=== PATIENT | female | born 1950 | race Two or more races ===

== ENCOUNTER 2023-01-31 15:02 | Outpatient (REF) | payer OTHER, SELFPAY ==
--- NOTE | ~2023-01-31 | XR_ITS ---
EXAMINATION: XR CHEST CLINICAL INFORMATION: 72-year-old with cough COMPARISON: None available. TECHNIQUE: 2 views of the chest were obtained. FINDINGS: No significant abnormality is noted involving the heart, lungs, mediastinum, bony thorax or soft tissues. XR/XR chest 2V IMPRESSION: Unremarkable examination.
== END 2023-01-31 15:03 | disposition home or self-care (01) ==
LOC: HO.HHCX 15:02
PROVIDERS: Visit Provider Internal Medicine
DX: R05.1 Acute cough (principal)
CPT/HCPCS: 71046

== ENCOUNTER 2025-03-26 09:40 | Outpatient (REF) | payer OTHER, SELFPAY ==
--- OUTSIDE RECORDS SUMMARY | 2025-03-26 09:43 | XMS_ITS | Clinical Summary ---
Author Organization [facility] Address [address] [place] [address] Care Team Providers Care Equipment Analyst Name Role Phone Krishna Manuel MD Primary Care Provider [phone] Source Comments PLEASE NOTE, if this patient is a minor, it may be UNLAWFUL to discuss sensitive information that is contained in these records (such as FAMILY PLANNING, MENTAL HEALTH or SUBSTANCE ABUSE) with the minor patient's parent or other person without the patient's specific authorization.[facility] Allergies No known active allergies Medications lidocaine (LIDODERM) 5 % patchIndications: Primary osteoarthritis of both hips Place 1 Patch onto the skin once daily (every 24 hours) 90 Patch 1 024 Active acetaminophen (TYLENOL) 500 mg tabletIndications :COVID-19,Arthrit is of knee, right Take 1 Tablet by mouth every 6 (six) hours as needed for pain 90 Tablet 1 024 Active diphenhydrAMINE (BENADRYL) 25 mg capsuleIndication s:Viral upper respiratory tract infection Take 1 Capsule by mouth nightly at bedtime as needed for rhinitis or sleep 90 Capsule 024 Active oxymetazoline (AFRIN SINUS, OXYMETAZOLINE,) 0.05 % nasal sprayIndications: Viral upper respiratory tract infection Place 2 Sprays into the nostril(s) 2 (two) times daily 15 mL 024 Active diclofenac sodium (VOLTAREN) 1 % gelIndications:Ar thritis of knee, right Apply topically 2 (two) times daily as needed for pain 350 g 3 025 Active ibuprofen 600 mg tabletIndications :Viral upper respiratory tract infection Take 1 Tablet by mouth 3 (three) times daily as needed for pain or headaches 90 Tablet 025 Active MISCELLANEOUS MEDICAL SUPPLY MISCIndications:e adam due to chronic venous insufficiency Knee high compression stockings 15-20mm Hg to be used daily x 99 years dispense 2 pairs Indications: visible water retention from chronic venous insufficiency 2 Each 025 Active arm brace (WRIST BRACE)Indications :Morning joint stiffness,Fibromy algia Please provide arm compression sleeve for use 99 years, hx of fibromylagia 1 Each 025 Active atorvastatin (LIPITOR) 80 mg tabletIndications :Mixed hyperlipidemia Take 1 Tablet by mouth nightly at bedtime 90 Tablet 1 025 Active magnesium oxide 400 mg magnesium tabIndications:No cturnal leg cramps Take 1 Tablet by mouth nightly at bedtime. 90 Tablet 1 025 Active magnesium oxide (MAG-OX) 400 mg (241.3 mg magnesium) tabletIndications :Nocturnal leg cramps Take 1 Tablet by mouth nightly at bedtime 90 Tablet 025 2024 Discontinued Active Problems Problem Noted Date Diagnosed Date Fibromyalgia 12/11/2024 Morning joint stiffness 04/23/2024 Overview (12/11/2024): 04/2024: diffuse joint stiffness especially in the mornings. Pt recommended rheum eval after being seen by orthopedics 12/2023. Rheum labs including ITZEL, ESR/CRP, Rf and CCP were wnl. 10/2024: Rheum - referred back to PCP for fibromyalgia syndrome Vit B12 and iron levels wnl Primary osteoarthritis of both hips 08/22/2023 Overview (08/22/2023): 07/01/23: [facility] XR hip FINDINGS: AP radiograph of the pelvis, along with coned-down AP and external rotation-abduction views of the right hip, are obtained. The study demonstrates no fracture or dislocation. There are small marginal osteophytes arising from the superolateral aspects of the acetabula bilaterally consistent with mild osteoarthritis. A 1.2 cm well-circumscribed calcification projecting over the left femoral head may represent a buttock calcification. IMPRESSION: No acute findings. Mild osteoarthritis of the hips bilaterally. Mixed hyperlipidemia 05/27/2023 Arthritis of knee, right 05/27/2023 Encounters Date Type Department Care Team Description 01/13/2025 Interim Notes [address] [address] [place] 12/24/2024 Interim Notes Caring [facility] Main [address] [phone] [place] from Last 3 Months Immunizations Immunization Administration Dates Next Due Flu, High Dose, 65y+, Fluzone High Dose 05/23/20 23 Influenza (FLUZONE), high-dose, trivalent, PF PNEUMOCOCCAL CONJUGATE PCV 20 (Prevnar 20) 02/18 TDAP 06/12/2024 ZOSTER VACCINE, RECOMBINANT (SHINGRIX) 3,02/18/2023 Social History Tobacco Use Types Packs/Day Years Used Date Smoking Tobacco: Never Smokeless Tobacco: Never Tobacco Cessation:Counseling Given: Not Answered Alcohol Use Standard Drinks/Week Comments Never 0 (1 standard drink = 0.6 oz pur e alcohol) Social Connections Answer Date Recorded Connectedness 1 08/22/2023 Financial Resource Strain Answer Date R ecorded Financial Resource Strain 1 2023 Stress Answer Date Recorded Stress 1 08/22/2023 Physical Activity Answer Date Recorded Physical Activity 0 02/18/2023 Food Insecurity Answer Date Recorded Food 1 08/22/2023 Transportation Needs Answer Date Record ed Transportation 1 08/22/2023 Housing Stability Answer Date Recorded Housing 1 08/22/2023 Safety and Environment Answer Date Bart rded Safety 1 08/22/2023 Utilities Answer Date Recorded Utilities 1 08/22/2023 Employment Answer Date Recorded Stress 0 02/18/2023 Comments No Sex and Gender Information Value Date Recorded Sex Assigned at Female 02/18/2023 11:28 AM PDT Legal Sex Female 1:35 PM PST Gender Identity Female 02/18/2023 11:28 AM PDT Sexual Orientation Straight 02/18/2023 11 :28 AM PDT Last Filed Vital Signs Vital Sign Reading Time Taken Comments Blood Pressure 132/78 12/11/2024 1:30 PM EDT Pulse 59 12/11/2024 1:30 PM EDT Temperature 36.7 C (98 F) 12/11/2024 1:30 PM EDT Respiratory Rate 18 12/11/2024 1:30 PM EDT Oxygen Saturation 99% 07/24/2024 8:59 AM EST Inhaled Oxygen Concentration - - Weight 73.9 kg (163 lb) 12/11/2024 1:30 PM EDT Height 158 cm (5' 2.21 ) 12/11/2024 1:30 PM EDT Body Mass Index 29.62 12/11/2024 1:30 PM EDT Plan of Treatment Health Maintenance Due Date Last Done Comments CT Colonography 1997 Colonoscopy 1997 Flexible Sigmoidoscopy 1997 FIT/gFOBT 03/21/2024 03/21/2023 [id number] ( season) 2024 Imm-Influenza (#1) 2025 06/12/2024, 05/23/2023 Annual Wellness (Adult): Ind icated (All Coverage) 07/24/2025 07/24/2024, 02/18/2023 Falls Prevention 07/24/2025 07/24/2024, 02/18/2023 Lipid Screening 12/09/2025 12/09/2024, 07/06, 02/18/2023 Hypertension Screening (#1) 12/11/2025 Tobacco Screening 12/11/2025 12/11/2024 Colorectal Cancer Screening 03/21/2026 Fecal DNA 03/21/2026 03/21/2023 Breast Cancer Screening (Mammogram) 04/22/202604/22 Imm-DTaP/Tdap/Td (2 - Td or Tdap) 06/12/2034 024 Hepatitis C Screening Completed 02/18/2023 Imm-Pneumococcal 50+ Completed 02/18/2023 Imm-Zoster, Recombinant Completed 04/22/2023, 02/18 Bone Density Screening Completed 08/21/2024 Alcohol and Drug Screen Completed 12/12/19, 08/22/2023, 02/18/2023 Depression Annual Screen Completed 12/11/2024 Procedures Procedure Name Priority Date/Time Associated Diagnosis Comments REFERRAL SCANNED DOCUMENT 03/15/2025 3:00 AM EDT REFERRAL TO ORTHOPEDICS Routine 02/15/2025 3:00 AM EDT Primary osteoarthritis of both hips Fibromyalgia Arthritis of knee, right OTHER ORDERS SCANNED DOCUMENT 01/20/2025 3:00 AM EDT OTHER ORDERS SCANNED DOCUMENT 01/12/2025 3:00 AM EDT LIPID PANEL Routine 12/09/2024 10:16 AM EDT Mixed hyperlipidemia REFERRAL FOR MAMMOGRAM Routine 04/22/2024 3:00 AM EDT Screening mammogram for breast cancer COLOGUARD Routine 03/21/2023 3:00 AM EDT Screening for colon cancer HEPATITIS C AB W/RFLX HCV RNA, QT, RT PCR Routine 02/18/2023 2:44 PM EDT Routine general medical examination at a [facility] care facility from Last 3 Months or Most Recently Relevant to Health Maintenance Results * REFERRAL SCANNED DOCUMENT (03/15/2025 3:00 AM EDT) 03/15/2025 3:00 AM EDT us Krishna Manuel MD SCAN REFERRAL Final Result * REFERRAL TO ORTHOPEDICS (02/15/2025 3:00 AM EDT) 02/15/2025 3:00 AM EDT us Krishna Manuel MD REFERRAL Final Result * OTHER ORDERS SCANNED DOCUMENT (01/20/2025 3:00 AM EDT) Only the most recent of2 resultswithin the time period is included. 01/20/2025 3:00 AM EDT us Krishna Manuel MD SCAN OTHER ORDERS Final Result * (ABNORMAL) LIPID PANEL (12/09/2024 10:16 AM EDT) CHOLESTEROL, TOTAL 245(H) <200 mg/dL [facility] HDL CHOLESTEROL 52 > OR = 50 mg/dL [facility] TRIGLYCERIDES 156(H) <150 mg/dL [facility] LDL-CHOLESTEROL 163(H) 99 mg/dL (calc) [facility] Comment: Reference range: <100 Desirable range <100 mg/dL for primary prevention; <70 mg/dL for patients with CHD or diabetic patients with > or = 2 CHD risk factors. LDL-C is now calculated using the Masoud calculation, which is a validated novel method providing better accuracy than the Friedewald equation in the estimation of LDL-C. Maykel SS et al. ADOLPH. 2013;310(19): 5776-8815 (http://education.[employer]/faq/GDC508) CHOL/HDLC RATIO 4.7 <5.0 (calc) [facility] NON-HDL CHOLESTEROL 193(H) <130 mg/dL (calc) [facility] Comment: For patients with diabetes plus 1 major ASCVD risk factor, treating to a non-HDL-C goal of <100 mg/dL (LDL-C of <70 mg/dL) is considered a therapeutic option. Blood Blood / Unknown 12/09/2024 1 0:16 AM EDT 12/09/2024 10:17 AM EDT Narrative [facility] - 12/10/2024 10:05 AM EDT FASTING:YES Reta Mariano FELLMONGERY WORKER-C LAB - BLOOD DRAW Final Re sult [facility] [address] [place] [id number], [facility] [address] [place] [id number] * REFERRAL FOR MAMMOGRAM (04/22/2024 3:00 AM EDT) 04/22/2024 3:00 AM EDT Krishna Manuel MD [facility] Edited Result - Final * COLOGUARD (03/21/2023 3:00 AM EDT) Stool Stool specimen / Unknown 03/21/2023 3:00 AM EDT Krishna Manuel MD LAB BODY FLUIDS AND STOOLS AMBUL ATORY Edited Result - Final [facility] [facility] [address], [address] [facility] [id number] [place] [address], * HEPATITIS C AB W/RFLX HCV RNA, QT, RT PCR (02/18/2023 2:44 PM EDT) HEPATITIS C ANTIBODY NON-REACT KALIA NON-REACT KALIA [facility] Comment: HCV antibody was non-reactive. There is no laboratory evidence of HCV infection. In most cases, no further action is required. However, if recent HCV exposure is suspected, a test for HCV RNA (test code 05558) is suggested. For additional information please refer to http://education.[employer]/faq/CZM97s4 (This link is being provided for informational/ educational purposes only.) Blood Blood / Unknown 02/18/2023 2 :44 PM EDT 02/18/2023 2:45 PM EDT Narrative [facility] - 02/19/2023 7:15 AM EDT FASTING:NO Krishna Manuel MD LAB - BLOOD DRAW Edited Result - Final Performing Organization Address City/[facility]/ZIP Co de Phone Number [facility] [address] [address], [facility] [address] [address] from Last 3 Months or Most Recently Relevant to Health Maintenance Insurance [place] Care Teams Equipment Analyst Relationship Specialty Start Date End Date Krishna Manuel MD [facility] [place] [address] PCP - General Family Medicine, Physician 11/19/22
--- OUTSIDE RECORDS SUMMARY | 2025-03-26 09:43 | XMS_ITS | Clinical Summary ---
Author Organization [address] [facility] Address [address] [place] [address] Phone Care Team Providers Care Repairer Switchgear Name Role Phone Aristeo Middleton MD Primary Care Provider [phone] Medications ketoconazole (NIZORAL) 2 % cream Apply topically 1 (one) time each day. 60 g 3 5 Active ibuprofen (ADVIL,MOTRIN) 600 mg tablet Take 1 tablet (600 mg total) by mouth 3 times daily as needed. 4 Active diphenhydrAMINE (BENADRYL) 25 mg capsule Take 1 capsule (25 mg total) by mouth. 4 Active atorvastatin (LIPITOR) 40 mg tablet Take 1 tablet (40 mg total) by mouth daily. 4 Active diclofenac (VOLTAREN) 1 % topical gel APPLY TOPICALLY TWICE A DAY NEEDED FOR PAIN Active acetaminophen (TYLENOL) 500 mg tablet Take 1 tablet (500 mg total) by mouth every 6 hours as needed. 4 Active ketorolac (ACULAR) 0.5 % ophthalmic solution PLEASE SEE ATTACHED FOR DETAILED DIRECTIONS 4 Active Encounters Date Type Department Care Team Description 02/15/2025 1:15 PM EDT Office Visit Orthopedic Surgery [facility] [address] [facility] [address] [place] [address] Kartik Benavides, DPM Dermatophytosis of nail (Primary Dx); Acquired hallux valgus of left foot; Acquired hallux valgus of right foot from Last 3 Months Social History Tobacco Use Types Packs/Day Years Used Date Smoking Tobacco: Never Assessed Comments Unknown Sex and Gender Information Value Date Recorded Sex Assigned at Female 08/20/2024 9:17 AM EST Legal Sex Female 12:37 PM EST Gender Identity Female 08/20/2024 9:17 AM EST Sexual Orientation Straight 08/20/2024 9: 17 AM EST Last Filed Vital Signs Vital Sign Reading Time Taken Comments Blood Pressure - - Pulse - - Temperature - - Respiratory Rate - - Oxygen Saturation - - Inhaled Oxygen Concentration - - Weight 77.1 kg (170 lb) 07/14/2024 9:20 AM EST Height 165.1 cm (5' 5 ) 07/14/2024 9:20 AM EST Body Mass Index 28.29 07/14/2024 9:20 AM EST Plan of Treatment Upcoming Encounters Date Type Department Care Team ([facility] st Contact Info) Description 05/19/2025 10:00 AM EDT Office Visit Orthopedic Surgery - [place] [address] [phone] Kartik Benavides, DPM [address] [address] Health Maintenance Due Date Last Done Comments Falls Risk Assessment 07/03/2022 Social Influencers of Health Screening 07/03/2022 COVID-19 Vaccine ( season) 2024 Depression Screening 08/05/2024 Influenza Vaccine (#1) 2025 06/12/2024, 2022 Hypertension/CHF/CAD Annual BMP Blood Test 07/24/2025 07/24/2024 Colorectal Cancer Screening: FIT-DNA (Cologuard) 03/21/2026 03/21/2023 Breast Cancer Screening 04/22/2026 04/22/2024 RSV Immunization Adult Patients (1 - 1-dose 75+ series) 10/30/2027 Cholesterol Screening (Lipid Panel) 12/09/2029 12/09/2024, 12/09/2024, 07/24/2024, Additional history exists DTaP,Tdap,and Td Vaccines (2 - Td or Tdap) 06/12/2034 06/12/2024 Osteoporosis Screening (Bone Density Screening) 08/21/2034 08/21/2024 Hepatitis C Screening Completed 02/18/2023 Pneumococcal Vaccine: 50+ Years Completed 02/18/2023 Zoster Vaccines Completed 04/22/2023, 02/18/2023 HIB Vaccines Aged Out No longer eligi ble based on patient's age to complete this topic HPV Vaccines Aged Out No longer eligi ble based on patient's age to complete this topic Hepatitis A Vaccines Aged Out No long er eligible based on patient's age to complete this topic Hepatitis B Vaccines Aged Out No long er eligible based on patient's age to complete this topic IPV Vaccines Aged Out No longer eligi ble based on patient's age to complete this topic MMR Vaccines Aged Out No longer eligi ble based on patient's age to complete this topic Meningococcal ACWY Vaccine Aged Out N o longer eligible based on patient's age to complete this topic Meningococcal B Vaccine Aged Out No l onger eligible based on patient's age to complete this topic RSV Immunization Patients Under 20 months Aged Out No longer eligible based on patient's age to complete this topic Varicella Vaccines Aged Out No longer eligible based on patient's age to complete this topic Procedures Procedure Name Priority Date/Time Associated Diagnosis Comments BD BONE DENSITY DXA AXIAL SKELETON Routine 08/21/2024 11:14 AM EST Encounter for screening for osteoporosis ANITA SCREENING DIGITAL Routine 04/22/2024 5:30 PM EDT Encounter for screening mammogram for malignant neoplasm of breast from Last 3 Months or Most Recently Relevant to Health Maintenance Results * BD Bone Density DXA Axial Skeleton (08/21/2024 11:14 AM EST) Anatomical Region Laterality Modality Wrist, Hip, L-spine Bone Densito metry 08/21/2024 12:0 8 PM EST Impressions 08/21/2024 12:09 PM EST 1. Osteopenia. 2. FRAX analysis yields a 10-year probability of major osteoporotic fracture of 5.2% and a 10-year probability of hip fracture of 0.6%. Code 12476 -------- FINAL REPORT -------- Dictated By: Abhilash Rousseau Dictated Date: 08/21/2024 12:08 ET Assigned Physician: Abhilash Rousseau Reviewed and Electronically Signed By: Abhilash Rousseau Signed Date: 08/21/2024 12:09 ET Workstation ID: [id number] Transcribed By: Self Edit Transcribed Date: 08/21/2024 12:08 ET Narrative 08/21/2024 12:09 PM EST HISTORY: The patient is a 73-year-old postmenopausal female with clinical concern for metabolic bone disease. FINDINGS: Dual energy x-ray absorptiometry of the lumbar spine and femurs is performed. The mean bone mineral density at L1-2 is 1.138 gm/cm2 which is 98% of that of young normals and 115% of that of age matched controls. This yields a T-score of -0.2 and a Z-score of 1.2 and there is therefore no evidence of osteoporosis or osteopenia here. The mean bone mineral density of the femurs bilaterally is 0.990 gm/cm2 which is 98% of that of young normals and 119% of that of age matched controls. This yields a T-score of -0.1 and a Z-score of 1.2 and there is therefore no evidence of osteoporosis or osteopenia here. However, the T-score of the right femoral neck is -1.1 which is diagnostic of osteopenia. Procedure Note Abhilash Rousseau MD - 08/21/2024 HISTORY: The patient is a 73-year-old postmenopausal female with clinicalconcern for metabolic bone disease. FINDINGS: Dual energy x-ray absorptiometry of the lumbar spine and femursis performed. The mean bone mineral density at L1-2 is 1.138 gm/cm2 whichis 98% of that of young normals and 115% of that of age matched controls.This yields a T-score of -0.2 and a Z-score of 1.2 and there is thereforeno evidence of osteoporosis or osteopenia here. The mean bone mineral density of the femurs bilaterally is 0.990 gm/en1tvtyr is 98% of that of young normals and 119% of that of age matchedcontrols. This yields a T-score of -0.1 and a Z-score of 1.2 and there istherefore no evidence of osteoporosis or osteopenia here. However, theT-score of the right femoral neck is -1.1 which is diagnostic ofosteopenia. IMPRESSION: 1. Osteopenia. 2. FRAX analysis yields a 10-year probability of major osteoporoticfracture of 5.2% and a 10-year probability of hip fracture of 0.6%. Code 20225 -------- FINAL REPORT -------- Dictated By: Abhilash Rousseau Dictated Date: 08/21/2024 12:08 ET Assigned Physician: Abhilash Rousseau Reviewed and Electronically Signed By: Abhilash Rousseau Signed Date: 08/21/2024 12:09 ET Workstation ID: [id number] Transcribed By: Self Edit Transcribed Date: 08/21/2024 12:08 ET Aristeo Middleton MD IM DXA PROCEDURES Final Result * ANITA SCREENING DIGITAL (04/22/2024 5:30 PM EDT) Anatomical Region Laterality Modality Mammography 04/22/2024 10:4 1 AM EDT Narrative 04/22/2024 5:30 PM EDT [facility] Diagnostic Imaging Department [address] [place] [address] Patient: ELIZABETH JACKMAN /Age/Sex: 1950 - 73 - F Unit#: [id number] [facility]ing [facility] Ordering Physician: ARISTEO MIDDLETON MD Anita Screening Digital - 04/22/24 - 8 Report Status:Signed EXAM: [facility] Screening Digital EXAM DATE AND TIME: 04/22/2024 11:09 AM HISTORY: Screening. Baseline exam. COMPARISON: No comparison imaging. TECHNIQUE: Bilateral digital breast tomosynthesis was performed in the CC and MLO projections. Computer aided detection with [employer] 3D 3.1 was employed. TISSUE DENSITY: b. There are scattered areas of fibroglandular density. FINDINGS: A 3 cm area of asymmetry is seen in the central upper left breast, possibly summation artifact. MLO spot compression tomosynthesis views and full lateral tomosynthesis views are recommended for further assessment. No grouped microcalcifications or areas of architectural distortion are seen. The skin and vascularity are unremarkable. IMPRESSION: 1. Left breast asymmetry, for which additional views are recommended. The patient will be called back. 2. No mammographic evidence of malignancy is seen in the right breast. BI-RADS: Category 0: Incomplete - Need Additional Imaging Evaluation RECOMMENDATION(S): 1: Special mammographic view(s) needed LEFT [facility] performed at [facility] [address] [place] [address] Dictating Physician: AZALEA FLORIAN MD Electronically Signed by: AZALEA FLORIAN MD Dic Date/Time: 04/22/24 1729 Sign date/Time: 04/22/24 1730 Procedure Note Azalea Florian MD - 05/20/2024 [facility] Diagnostic Imaging Department [address] [place] [address] Patient: ELIZABETH JACKMAN./Age/Sex: 1950 - 73 - F Unit#: [id number] Location/Status: [facility]/REG CLI Mnemonic/Ordering Site: [facility] Ordering Physician: ARISTEO MIDDLETON MD [facility] Screening Digital - 04/22/24 - 1108 Report Status:Signed EXAM: [facility] Screening Digital EXAM DATE AND TIME: 04/22/2024 11:09 AM HISTORY: Screening. Baseline exam. COMPARISON: No comparison imaging. TECHNIQUE: Bilateral digital breast tomosynthesis was performed in the CCand MLO projections. Computer aided detection with [employer] 3D 3.1was employed. TISSUE DENSITY: b. There are scattered areas of fibroglandular density. FINDINGS: A 3 cm area of asymmetry is seen in the central upper left breast,possibly summation artifact. MLO spot compression tomosynthesis views and fulllateral tomosynthesis views are recommended for further assessment. No grouped microcalcifications or areas of architectural distortion areseen. The skin and vascularity are unremarkable. IMPRESSION: 1. Left breast asymmetry, for which additional views are recommended.The patient will be called back. 2. No mammographic evidence of malignancy is seen in the right breast. BI-RADS: Category 0: Incomplete - Need Additional Imaging Evaluation RECOMMENDATION(S): 1: Special mammographic view(s) needed LEFT [facility]amm[facility] performed at [facility] [address] [address] Dictating Physician: AZALEA FLORIAN MD Electronically Signed by: AZALEA FLORIAN MD Dic Date/Time: 04/22/24 1729 Sign date/Time: 04/22/24 1730 Aristeo Middleton MD IMG BI PROCEDURES Final Result from Last 3 Months or Most Recently Relevant to Health Maintenance Insurance [place] Care Teams Repairer Switchgear Relationship Specialty Start Date End Date Aristeo Middleton MD [facility] [place] [address] PCP - General 04/21/24
[2025-03-26 15:49] LABS: MANUAL DIFF FLAG NO
[2025-03-26 16:00] LABS: Appearance Urine Clear; Glucose Urine UA Negative (Negative); PH 6.0 (5.0-9.0); Specific Gravity - Urine 1.015 (1.005-1.025)
[2025-03-26 16:01] LABS: UMIC TRIGGER UACC YES
[2025-03-26 16:14] LABS: Hematocrit 35.7 % (37.0-47.0); Hemoglobin 11.7 g/dl (12.0-16.0); Imm Gran Abs Auto 0.02 X10*3/uL (0.00-0.03); Imm Gran Pct Auto 0.4 % (0.0-0.4); Lymphocytes Absolute Auto 2.1 X10*3/uL (1.2-4.9); Mean Corpuscular HGB Conc 32.8 g/dl (31.0-35.0); Mean Corpuscular Hemoglobin 29.3 pg (27.0-33.0); Mean Corpuscular Volume 89.3 fL (80.0-98.0); NRBC Abs Auto 0.000 X10*3/uL (0.0-0.012); NRBC Pct Auto 0.0 /100WBC (0.0-0.2); Platelet Count 247 X10*3/uL (160-400); Red Blood Count 4.00 X10*6/uL (4.20-5.50); White Blood Count 5.6 X10*3/uL (4.8-10.8)
[2025-03-26 16:39] LABS: Alanine Aminotransferase 16 U/L (0-31); Albumin Level 4.0 g/dL (3.5-5.0); Alkaline Phosphatase 62 U/L (39-117); Anion Gap 11 (12-20); Aspartate Amino Transferase 30 U/L (5-31); Blood Urea Nitrogen 14 mg/dL (9-16); Calcium 9.2 mg/dL (8.4-10.2); Carbon Dioxide 26 mmol/L (22-29); Chloride 108 mmol/L (96-108); Cholesterol 244 mg/dL (<200); Estimated Glomerular Filt Rate > 60; HDL Cholesterol 43 mg/dL (>40); Potassium 3.9 mmol/L (3.3-5.1); Sodium 141 mmol/L (135-145); Total Protein 6.7 g/dL (6.5-8.0); Triglycerides 161 mg/dL (<150)
[2025-03-26 17:14] LABS: Folate 8.3 ng/mL (> or = 4.0); Vitamin B12 638 pg/mL (200-900)
[2025-03-27 08:44] LABS: HBS Num1 207.17 mIU/mL (0-7.99); HBc Num1 6.56 S/CO (0.00-0.79); HBsAGNum1 0.33 S/CO (0.00-0.99); Hepatitis A Antibody IgM 0.21 Index (0-0.79); Hepatitis B Surface Antigen Negative (Negative); ~HepC Num1 0.17 S/CO (0.00-0.79); ~Hepatitis A Antibody IgM Nonreactive (Nonreactive); ~Hepatitis B Surface Antibody REACTIVE (Nonreactive); ~Hepatitis C Antibody Nonreactive (Nonreactive)
[2025-03-27 13:11] LABS: HBc Num2 6.54 S/CO; HBc Num3 6.57 S/CO
[2025-03-29 12:04] LABS: Hepatitis B Core Antibody IgM NON-REACTIVE (NON-REACTIVE)
== END 2025-03-26 09:41 | disposition home or self-care (01) ==
LOC: HO.CHCLDS 09:40
PROVIDERS: Visit Provider Family Medicine
DX: Z13.6 Encounter for screening for cardiovascular disorders (principal); R03.0 Elevated blood-pressure reading, without diagnosis of hypertension; M25.50 Pain in unspecified joint; R20.0 Anesthesia of skin; R20.2 Paresthesia of skin
CPT/HCPCS: 36415; 80053; 80061; 81001; 82607; 82746; 84443; 85025; 85652; 86140; 86200; 86431; 86704; 86705; 86706; 86709; 86803; 87340